=== PATIENT | female | born 1960 | race Caucasian/White ===

== ENCOUNTER 2024-11-16 08:07 | Emergency (ER) | payer MEDICARE, MEDICAID ==
[~2024-11-16] VITALS: Ht 165.1 cm; Wt 98.1 kg
--- NOTE | 2024-11-16 08:30 | Physician Documentation ---
History of Present Illness ~ General Chief Complaint: See Chief Complaint Stated Complaint: L LEG RECHECK Time Seen by MD: 08:18 History of Present Illness Initial Comments patient presents requesting removal of left lower leg cast. She had fibular fra cture in [place] 2 days before moving to [place]. She has not set up a primary care doctor or had orthopedic follow up. She is requesting cast removal. She has been walking on it with cast shoe and crutch. Denies any pain at the cast. Review of Systems All Other Systems at this time: Reviewed and Negative Respiratory: Denies: shortness of breath Cardiovascular: Denies: chest pain Physical Exam Physical Exam Vital Signs: Temperature: 98.1, Heart Rate: 66, Respiratory Rate: 18, BP: 117/81, Pulse Oximetry: 97, Weight: 98.100 Oxygen Flow Rate: 0 Physical Exam left lower leg cast in place. No skin breakdown, no swelling. Progress Results/Orders Results/Orders Vital Signs 11/16/24 08:15 Temp 98.1 Pulse 66 Resp 18 B/P (MAP) 117/81 Pulse Ox 97 O2 Flow Rate 0 Medical Decision Making Differential Diagnosis compartment syndrome, DVT, cellulitis Departure Disposition: HOME / SELF CARE / HOMELESS Impression: Primary Impression: Cast in place on lower extremity Additional Impression Text asymptomatic patient with distal fibular fracture seeking case removal. I discussed the option of removing and placing in walking boot however that it would be best for orthopedics to evaluate beforehand. Advised ortho f/u and if unable to obtain in timely manner to return to ED for cast removal. Additional Instructions: Please follow up with orthopedics. Call them today. They can assess the appropriate timing of cast removal. Return to the ER for any cast pain and return if unable to get appropriate follow up. Referrals: VAUGHN REEDER MD 3-4 days Signature Scribe Signature: na Attestation: BRENDA Can MD November 16, 2024 08:30
[2024-11-16 08:49] VITALS: BP 117/81; PULSE 66; RESP 18; TEMP 98.1; O2SAT 97
== END 2024-11-16 08:53 | disposition home or self-care (01) ==
LOC: ER 08:08
DX: Z46.89 Encounter for fitting and adjustment of other specified devices (principal)
CPT/HCPCS: 99281

== ENCOUNTER 2024-11-22 08:17 | Emergency (ER) | payer MEDICARE, MEDICAID ==
[~2024-11-22] VITALS: Ht 165.1 cm; Wt 98.2 kg
--- NOTE | 2024-11-22 09:39 | RADIOLOGY REPORT ---
CLINICAL INDICATION: pain; cast removal TECHNIQUE: 3 radiographic views of the left ankle were obtained. Comparison: None FINDINGS/IMPRESSION: Nondisplaced fracture of the distal fibula. Medial malleolus fracture. Small posterior and plantar ca lcaneal enthesophytes.
--- NOTE | 2024-11-22 09:47 | Physician Documentation ---
History of Present Illness ~ Chief Complaint: Ankle pain Stated Complaint: REMOVE CAST Time Seen by MD: 08:37 Primary Medical Doctor: None HPI 64 year old female with LLE cast placed approximately 8 weeks ago for distal fibular fracture. Here for cast removal as her appointment with ortho is not for several weeks and she was instructed to be seen here for a cast removal. Tetanus witin 5 years: No Medication Reconciliation Allergies: Coded Allergies: amoxicillin (Verified Allergy, Intermediate, HIVES, 11/22/24) clarithromycin (Verified Allergy, Intermediate, HIVES, 11/22/24) Past Medical History Smoking Status: Former smoker Review of Systems All Other Systems at this time: Reviewed and Negative Physical Exam Vital Signs: RN Vital Signs have been reviewed: Yes, Temperature: 98.3, Source: Temporal, Heart Rate: 62, Respiratory Rate: 18, BP: 106/82, Pulse Oximetry: 98, Weight: 98.180 Physical Exam HEENT: PERRL, moist oral mucosa, EOMI Pulmonary: No respiratory distress MSK: no deformity; L ankle in cast Skin: w/d/i, no rash Neuro: alert, nonfocal Psych: normal affect Progress Results/Orders Results/Orders Orders - SIDRA MENDOZA MD General Nursing Order (11/22/24 ) Ankle,Limited (Ap/Lat) (11/22/24 ) Completed Orders - SIDRA MENDOZA MD Ankle,Limited (Ap/Lat) (11/22/24 ) Vital Signs 11/22/24 08:29 Temp 98.3 Pulse 62 Resp 18 B/P (MAP) 106/82 Pulse Ox 98 EKG/XRAY/CT/US/VASC/MRI Bone/Soft Tissue X-Ray (Ext.) : Interpreted By: self Views: 2 VIEW Indication: trauma Location: ankle Additional Comment My interpretation: well-healing subacute fracture of distal L fibula Medical Decision Making Findings 64 year old female with well-healing distal fibular fracture. Removed cast, will continue hard boot, return precautions. Departure Disposition: 01 HOME / SELF CARE / HOMELESS Impression: Primary Impression: Cast in place on lower extremity Additional Impression: Left fibular fracture Condition: Stable Discharge Instructions: Ankle Fracture Referrals: NO PRIMARY CARE PROVIDER (PCP) Education Educated: Patient Educated regarding: diagnosis, treatment, prognosis, need for follow up Signature Scribe Signature: . Attestation: . SIDRA MENDOZA MD November 22, 2024 09:47
[2024-11-22 10:06] VITALS: BP 135/75; PULSE 66; RESP 18; TEMP 98.3; O2SAT 99
== END 2024-11-22 10:08 | disposition home or self-care (01) ==
LOC: ER 08:18
DX: S82.402A Unspecified fracture of shaft of left fibula, initial encounter for closed fracture (principal); Z87.891 Personal history of nicotine dependence; Z88.0 Allergy status to penicillin; X58.XXXA Exposure to other specified factors, initial encounter; Y93.89 Activity, other specified; Y92.89 Other specified places as the place of occurrence of the external cause; Y99.8 Other external cause status
CPT/HCPCS: 73600; 99284; L4360